=== PATIENT | male | born 1990 | race Caucasian/White ===

== ENCOUNTER 2017-03-02 19:48 | Emergency (ER) | payer OTHER ==
[~2017-03-02] VITALS: Ht 190.5 cm; Wt 86.2 kg
[2017-03-02 20:03] VITALS: BP 141/89
[2017-03-02] MEDS ORDERED: AMPH30CE PO (20:09)
--- NOTE | 2017-03-02 20:53 | NUR ---
TO ER BED 8 FROM
--- NOTE | 2017-03-02 20:58 | NUR ---
PT BACK ON UNIT FROM [place].
--- NOTE | 2017-03-02 21:06 | NUR ---
PT IS 27/M BIB SELF TO ED WITH C/O TESTICULAR BUMP WITH PAIN UPON TOUCH X 1 DAY. PT STATES NO MEDICAL HX. DENIES N/V/D; SKIN IS PINK/WARM/DRY; AAOX4 WITH EVEN AND STEADY GAIT; LUNGS CLEAR BL; HR EVEN AND REGULAR; PT DENIES ANY FEVER, CP, SOB, OR COUGH AT THIS TIME; PATIENT STATES PAIN OF 5/10 AT THIS TIME; VSS; PATIENT POSITIONED FOR COMFORT; HOB ELEVATED; BEDRAILS UP X2; BED DOWN. ER MD MADE AWARE OF PT STATUS.
[2017-03-02 21:34] VITALS: BP 126/70
== END 2017-03-02 21:34 | disposition home or self-care (01) ==
LOC: MED 19:48
DX: N43.3 Hydrocele, unspecified (principal)
CPT/HCPCS: 36415; 76870; 81002; 99285